=== PATIENT | male | born 1960 | race Caucasian/White ===

== ENCOUNTER 2017-07-26 15:14 | Emergency (ER) | payer OTHER ==
[~2017-07-26] VITALS: Ht 167.6 cm; Wt 72.7 kg
[~2017-07-26 15:14] MED LIST: ATOR20TA17 PO
[2017-07-26 15:18] VITALS: Ht 167.6 cm; Wt 72.7 kg
[2017-07-26] MEDS ORDERED: KETOROLAC 60 MG INJ IM STA (16:04)
[2017-07-26] MEDS ORDERED: CEPH-443 PO (17:58)
--- NOTE | 2017-07-26 17:58 | RADRPT ---
PROCEDURE: Ultrasound soft tissue CLINICAL INDICATION: Palpable lump along the lower back. TECHNIQUE: An ultrasound of the lumbar subcutaneous tissues was performed utilizing roy scale and Doppler imaging. COMPARISON: None. FINDINGS: There is a 3.0 x 2.5 x 1.6 cm heterogeneous cystic structure in the left lumbar area subcutaneous ti ssues. Doppler imaging reveals no vascularity within this structure. IMPRESSION: 1. Heterogeneous cystic structure in the left lumbar area subcutaneous tissues. This is nonspecific but might represent a sebaceous cyst, epidermal inclusion cyst, hematoma, or possibly an abscess. RPTAT: HTAR .Lew Lincoln MD, Date Time Electronically viewed and signed by .Lew Lincoln MD, on 07/26/2017 17:57 .R/
[2017-07-26] MEDS ORDERED: TRAM50TA2 PO (18:02)
--- NOTE | 2017-07-28 06:22 | ERD ---
ER Documentation Chief Complaint Chief Complaint Complains of lower back pain or a possible abscess. HPI This is a 57-year-old male presents to the ER with a mass to his lower back. Patient has had this for over a month. He states that the area has become painful, whenever he lays down on it and whenever he is sitting down on it. Patient denies any fevers or chills. He denies any trauma to the back. He denies any IV drug use. He denies any urinary bowel incontinence. He denies any saddle like anesthesia. The mass is not red, not have any discharge coming from it. ROS 12 point review of systems was done, all negative except per HPI. Medications Home Meds Active Scripts Tramadol HCl (Tramadol HCl) 50 Mg Tablet, 50 MG PO Q4 Y for PAIN, #20 TAB Prov:SABRINARASHIDA Mullen 07/26/17 Cephalexin* (Keflex*) 500 Mg Capsule, 500 MG PO BID for 7 Days, CAP Prov:RASHIDA BENNETT 07/26/17 Reported Medications Atorvastatin (Lipitor) 20 Mg Tablet, 20 MG PO 09/24/11 Allergies Allergies: Coded Allergies: morphine (Verified Allergy, 09/24/11) PMhx/Soc History of Surgery: No Anesthesia Reaction: No Hx Neurological Disorder: No Hx Respiratory Disorders: No Hx Cardiac Disorders: Yes (HIGH CHOLESTEROL ) Hx Psychiatric Problems: No Hx Miscellaneous Medical Probl: No Hx Alcohol Use: No Hx Substance Use: No Hx Tobacco Use: No Physical Exam Vitals Vital Signs Date Time Temp Pulse Resp B/P Pulse Ox O2 Delivery O2 Flow Rate FiO2 07/26/17 15:18 97.9 87 20 149/83 97 Physical Exam GENERAL: The patient is well developed and appropriate for usual state of health , in no apparent distress. HEENT: Atraumatic. CHEST: Clear to auscultation bilaterally. There are no rales, wheezes or rhonchi. HEART: Regular rate and rhythm. No murmurs, clicks, rubs or gallops. BACK: No midline or flank tenderness. No lumbar spine tenderness, no crepitus, no step-offs. A centimeter by 2 cm mass to the left side of the back, soft and movable, there is no erythema, warmth to the touch or discharge. EXTREMITIES: No focal swelling or erythema. Full range of motion. Grossly neurovascularly intact. NEURO: Alert and oriented. Results 24 hrs Current Medications Medications (Trade) Dose Ordered Sig/Latanya Route PRN Reason Start Time Stop Time Status Last Admin Dose Admin Ketorolac Tromethamine (Toradol) 60 mg ONCE STAT IM 07/26/17 16:04 07/26/17 16:06 DC 07/26/17 16:23 [place] [id number] Radiology Main Line: [phone] DIAGNOSTIC IMAGING REPORT Patient: JUANITA RENEE : 1960 Age: 57 Sex: M MR #: [id number] DOS: 07/26/17 0000 Ordering MD: RASHIDA BENNETT PAMoe Location: [facility] Room/Bed: PROCEDURE: Ultrasound soft tissue CLINICAL INDICATION: Palpable lump along the lower back. TECHNIQUE: An ultrasound of the lumbar subcutaneous tissues was performed utilizing roy scale and Doppler imaging. COMPARISON: None. FINDINGS: There is a 3.0 x 2.5 x 1.6 cm heterogeneous cystic structure in the left lumbar area subcutaneous tissues. Doppler imaging reveals no vascularity within this structure. IMPRESSION: 1. Heterogeneous cystic structure in the left lumbar area subcutaneous tissues. This is nonspecific but might represent a sebaceous cyst, epidermal inclusion cyst, hematoma, or possibly an abscess. RPTAT: HTAR .Lew Lincoln MD, MD Date Time Electronically viewed and signed by .Lew Lincoln MD, on 07/26/2017 17:57 .R/ CC: RASHIDA BENNETT Procedures/MDM This is a 57-year-old male that presents to the ER with a mass to his lower back. This is likely a sebaceous cyst. Suspicion for infected sebaceous cyst is low, however patient will be sent home with a course of Keflex for any potential infection. I advised patient to visit his recycling or rubbish collector for removal of sebaceous cyst, and is afebrile and well-appearing. Patient has full range of motion of bilateral lower extremities and is neurovascularly intact. He is stable for outpatient follow-up. Patient is to follow-up with his primary care doctor within 1-2 days return to ER sooner if symptoms worsen. My medical decision making shared with the patient he understands and agrees with plan. Departure Diagnosis: Primary Impression: Sebaceous cyst Condition: Stable Patient Instructions: Sebaceous Cyst, Infected (Abx Tx) Additional Instructions: Specialist:Usted tiene ankita condicin mdica que requiere que rayo a un especialista dentro de los prximos 1-2 santillan.POR FAVOR,CON GATICA SEGUIMIENTO DE PRIMARIA PHSICIAN refferal. SI USTED NO TIENE UN MDICO GENERAL Y / O USTED NO PUEDE PAGAR jackson a un mdico,los siguientes jimenez RECURSOS sido suministrado a usted. ES GATICA RESPONSABILIDAD PARA SER VISTOS POR EL ESPECIALISTA: NECESITA JACKSON A UN DERMATOLOGO RASHIDA BENNETT Jul 28, 2017 06:22
== END 2017-07-26 18:10 | disposition home or self-care (01) ==
LOC: FTE 15:14
DX: L72.3 Sebaceous cyst (principal)
CPT/HCPCS: 76536; 96372; J1885; Z7502